=== PATIENT | female | born 1940 | race Caucasian/White ===

== ENCOUNTER 2021-12-18 18:49 | Inpatient (IN) ==
[2021-12-18] MEDS ORDERED: Iopamidol - 370 500 ML MLS IVP ONE (20:34)
[2021-12-18 21:19] LABS: Basophils % 0.3 %; Hematocrit 25.3 % (35.3-44.9); Immature Granulocytes % 1.4 % (0-4); Lymphocytes # 0.8 K/mcL (0.6-4.6); Lymphocytes % 10.2 %; Mean Corpuscular HGB Conc 31.6 g/dL (31.6-35.5); Mean Corpuscular Hemoglobin 31.7 pg (28.0-33.3); Mean Corpuscular Volume 100.4 fL (83.0-100.0); Mean Platelet Volume 9.6 fL (9.4-12.4); Monocytes # 0.5 K/mcL (0.0-1.3); Monocytes % 6.6 %; Neutrophils # 6.4 K/mcL (1.6-8.9); Platelet Count 151 K/mcL (140-400); Red Blood Count 2.52 M/mcL (3.82-4.97); Red Cell Distribution Width 18.1 % (11.5-14.5); Segmented Neutrophils % 81.5 %; White Blood Count 7.8 K/mcL (4.3-11.1)
[2021-12-18 21:27] LABS: Bilirubin,Urine Small (Negative); Blood,Urine Large (Negative); Clarity,Urine Turbid (Clear); Color,Urine Red (Yellow); Glucose,Urine (UA) Normal (Normal); Ketones,Urine Negative (Negative); Leukocyte Esterase,Urine Small (Negative); Nitrite,Urine Negative (Negative); Protein,Urine >=300 mg/dL (Neg-Trace); Specific Gravity,Urine 1.025 (1.010-1.025); Urobilinogen,Urine Normal (Normal)
[2021-12-18 21:42] LABS: Albumin 2.8 g/dL (3.5-5.7); Albumin/Globulin Ratio 1.2 (1.1-2.2); Bilirubin,Direct 0.2 mg/dL (0.0-0.2); Bilirubin,Indirect 0.5 mg/dL (0.0-1.0); Bilirubin,Total 0.7 mg/dL (0.3-1.0); Calcium 8.3 mg/dL (8.6-10.3); Globulin 2.4 g/dL (2.4-3.5); Magnesium 1.7 mg/dL (1.6-2.6); Total Protein 5.2 g/dL (6.4-8.9); Troponin I 0.04 ng/mL (< 0.04)
[2021-12-18] MEDS ORDERED: cefTRIAXone 1,000 MG in 0.9 % Sodium Chloride 10 ML IVP ONE (22:59)
[2021-12-18] MEDS ORDERED: 0.9 % Sodium Chloride 500 ML IVC ONE (23:01)
[2021-12-19] MEDS ORDERED: Naloxone 0.4 MG/ML INJ IVP PRN (00:50)
[2021-12-19 02:39] LABS: Albumin 2.5 g/dL (3.5-5.7); Albumin/Globulin Ratio 1.1 (1.1-2.2); Bilirubin,Total 0.5 mg/dL (0.3-1.0); Calcium 7.9 mg/dL (8.6-10.3); Globulin 2.3 g/dL (2.4-3.5); Magnesium 1.8 mg/dL (1.6-2.6); Phosphorous 4.8 mg/dL (2.7-4.5); Potassium 4.9 mEq/L (3.5-5.1); Total Protein 4.8 g/dL (6.4-8.9)
[2021-12-19] MEDS ORDERED: D5% in Water 1,000 ML IVC PRN (02:47)
[2021-12-19] MEDS ORDERED: Dextrose Gel 15 GM/37.5 ML TUBE PO PRN ×2 (02:47)
[2021-12-19] MEDS ORDERED: *HR* Dextrose 50 % in Water (Syg) 50 ML SYRINGE IVP PRN (02:47)
[2021-12-19 02:50] LABS: Basophils % 0.5 %; Eosinophils % 0.2 %; Hematocrit 22.9 % (35.3-44.9); Hemoglobin 7.3 g/dL (11.5-15.4); Immature Granulocytes % 1.5 % (0-4); Lymphocytes # 1.1 K/mcL (0.6-4.6); Lymphocytes % 17.6 %; Mean Corpuscular HGB Conc 31.9 g/dL (31.6-35.5); Mean Corpuscular Hemoglobin 32.4 pg (28.0-33.3); Mean Corpuscular Volume 101.8 fL (83.0-100.0); Monocytes # 0.5 K/mcL (0.0-1.3); Monocytes % 8.8 %; Neutrophils # 4.3 K/mcL (1.6-8.9); Platelet Count 146 K/mcL (140-400); Red Blood Count 2.25 M/mcL (3.82-4.97); Red Cell Distribution Width 18.6 % (11.5-14.5); Segmented Neutrophils % 71.4 %
[2021-12-19 02:51] LABS: Activated Partial Thrombo Time 27.2 Seconds (26.0-36.0); INR 1.1; Prothrombin Time 12.6 Seconds (9.4-12.1)
[2021-12-19 03:10] LABS: VBG HCO3 22 mEq/L (21-27); VBG PCO2 21 mmHg (41-51); VBG PH 7.62 pH Units (7.32-7.42); VBG PO2 109 mmHg (25-50)
[2021-12-19 04:22] LABS: Amphetamine Screen,Urine Negative ng/mL (Cutoff=1000); Barbiturate Screen,Urine Negative ng/mL (Cutoff=200); Benzodiazepines Screen,Urine Negative ng/mL (Cutoff=200); Cannabinoid Screen,Urine Positive ng/mL (Cutoff = 50); Cocaine Screen,Urine Negative ng/mL (Cutoff= 300); Opiate Screen,Urine Positive ng/mL (Cutoff=300); Phencyclidine Screen,Urine Negative ng/mL (Cutoff=25)
[2021-12-19] MEDS: Piperacillin/Tazobactam 3.375 GM in 0.9 % Sodium Chloride Mini Bag 100 ML IVPB SCH ×2 (05:28→17:05)
[2021-12-19 07:02] LABS: % Iron Saturation 13 % (15-50); Acetaminophen < 10 mcg/mL (10-20); Ethanol < 10 mg/dL (Less than 10); Iron 31 mcg/dL (50-170); Salicylate < 2.5 mg/dL (15.0-30.0); Transferrin 169 mg/dL (203-362)
[2021-12-19 07:18] LABS: Ferritin 180 ng/mL (10-120)
[2021-12-19 07:23] LABS: Folate 10.8 ng/mL (3.0-16.0)
[2021-12-19] MEDS ORDERED: Piperacillin/Tazobactam 3.375 GM in 0.9 % Sodium Chloride Mini Bag 100 ML IVPB SCH (08:00)
[2021-12-19] MEDS: Lactobacillus 1 EACH CAP.SPRINK PO SCH ×2 (08:28→20:11)
[2021-12-19] MEDS ORDERED: 0.9 % Sodium Chloride 250 ML ONE (09:36)
[2021-12-19] MEDS: Ipratropium/Albuterol Neb 3 ML IH SCH ×3 (10:45→21:23)
[2021-12-19 11:53] LABS: Estimated Average Glucose 111 mg/dl; Hemoglobin A1C 5.5 %
[2021-12-19] MEDS: Cyanocobalamin (B-12) 1,000 MCG/ML VIAL SQ SCH (13:17)
[2021-12-19 14:33] LABS: Hematocrit 27.5 % (35.3-44.9); Hemoglobin 8.6 g/dL (11.5-15.4)
[2021-12-19 16:17] LABS: Basophils % 0.3 %; Eosinophils % 0.2 %; Hemoglobin 9.1 g/dL (11.5-15.4); Immature Granulocytes % 0.9 % (0-4); Immature Reticulocyte % 32.9 % (11.0-38.0); Lymphocytes % 15.2 %; Mean Corpuscular HGB Conc 31.4 g/dL (31.6-35.5); Mean Corpuscular Hemoglobin 31.2 pg (28.0-33.3); Mean Corpuscular Volume 99.3 fL (83.0-100.0); Mean Platelet Volume 9.8 fL (9.4-12.4); Monocytes # 0.4 K/mcL (0.0-1.3); Monocytes % 6.6 %; Neutrophils # 4.9 K/mcL (1.6-8.9); Platelet Count 148 K/mcL (140-400); Red Blood Count 2.92 M/mcL (3.82-4.97); Red Cell Distribution Width 19.4 % (11.5-14.5); Retculocyte # 0.15 M/mcL (0.05-0.10); Reticulocyte % 5.2 % (1.6-2.8); Segmented Neutrophils % 76.8 %; White Blood Count 6.4 K/mcL (4.3-11.1)
[2021-12-20] MEDS: Ipratropium/Albuterol Neb 3 ML IH SCH ×2 (04:14→11:12)
[2021-12-20 04:59] LABS: Basophils % 0.3 %; Eosinophils % 0.2 %; Hemoglobin 9.3 g/dL (11.5-15.4); Immature Granulocytes % 1.1 % (0-4); Lymphocytes # 0.7 K/mcL (0.6-4.6); Lymphocytes % 11.8 %; Mean Corpuscular HGB Conc 32.1 g/dL (31.6-35.5); Mean Corpuscular Hemoglobin 31.5 pg (28.0-33.3); Mean Corpuscular Volume 98.3 fL (83.0-100.0); Mean Platelet Volume 9.7 fL (9.4-12.4); Monocytes # 0.5 K/mcL (0.0-1.3); Monocytes % 8.5 %; Neutrophils # 4.8 K/mcL (1.6-8.9); Platelet Count 161 K/mcL (140-400); Red Blood Count 2.95 M/mcL (3.82-4.97); Red Cell Distribution Width 19.9 % (11.5-14.5); Segmented Neutrophils % 78.1 %; White Blood Count 6.1 K/mcL (4.3-11.1)
[2021-12-20 05:16] LABS: Calcium 7.9 mg/dL (8.6-10.3); Magnesium 1.8 mg/dL (1.6-2.6); Phosphorous 3.9 mg/dL (2.7-4.5); Potassium 4.2 mEq/L (3.5-5.1)
[2021-12-20] MEDS ORDERED: *HR* Metoprolol 5 MG/5 ML VIAL IVP ONE ×2 (05:24→19:05)
[2021-12-20] MEDS: Piperacillin/Tazobactam 3.375 GM in 0.9 % Sodium Chloride Mini Bag 100 ML IVPB SCH ×2 (05:58→08:00)
[2021-12-20] MEDS ORDERED: *HR* OxyCODONE Immed Rel 15 MG TABLET PO PRN (07:12)
[2021-12-20] MEDS: DilTIAZem CD (24hr) 120 MG CAP.ER.24H PO SCH (09:07)
[2021-12-20] MEDS: *HR* Digoxin 0.125 MG TABLET PO SCH (09:07)
[2021-12-20] MEDS: Lactobacillus 1 EACH CAP.SPRINK PO SCH ×2 (09:07→19:41)
[2021-12-20] MEDS: Cyanocobalamin (B-12) 1,000 MCG/ML VIAL SQ SCH (09:11)
[2021-12-20] MEDS ORDERED: Ipratropium/Albuterol Neb 3 ML IH PRN (11:07)
[2021-12-20] MEDS: Fluconazole 200 MG/100 ML 200 MG/100 ML BAG IVPB SCH (14:35)
[2021-12-20 17:53] LABS: VBG HCO3 21 mEq/L (21-27); VBG PCO2 26 mmHg (41-51); VBG PO2 125 mmHg (25-50)
[2021-12-20] MEDS ORDERED: 0.9 % Sodium Chloride 500 ML IVC ONE (19:10)
[2021-12-20] MEDS: Acetaminophen 325 MG TABLET PO PRN (19:31)
[2021-12-20] MEDS ORDERED: *HR* OxyCODONE Immed Rel 5 MG TABLET PO ONE (21:48)
[2021-12-21 04:35] LABS: Basophils % 0.5 %; Eosinophils % 0.4 %; Hematocrit 29.9 % (35.3-44.9); Hemoglobin 9.5 g/dL (11.5-15.4); Immature Granulocytes % 1.2 % (0-4); Lymphocytes # 1.1 K/mcL (0.6-4.6); Lymphocytes % 18.7 %; Mean Corpuscular HGB Conc 31.8 g/dL (31.6-35.5); Mean Corpuscular Hemoglobin 31.4 pg (28.0-33.3); Mean Corpuscular Volume 98.7 fL (83.0-100.0); Mean Platelet Volume 9.9 fL (9.4-12.4); Monocytes # 0.6 K/mcL (0.0-1.3); Monocytes % 9.7 %; Neutrophils # 3.9 K/mcL (1.6-8.9); Platelet Count 147 K/mcL (140-400); Red Blood Count 3.03 M/mcL (3.82-4.97); Red Cell Distribution Width 19.8 % (11.5-14.5); Segmented Neutrophils % 69.5 %; White Blood Count 5.7 K/mcL (4.3-11.1)
[2021-12-21 04:54] LABS: Calcium 7.7 mg/dL (8.6-10.3); Magnesium 1.7 mg/dL (1.6-2.6); Phosphorous 3.2 mg/dL (2.7-4.5); Potassium 3.9 mEq/L (3.5-5.1)
[2021-12-21] MEDS: *HR* Digoxin 0.125 MG TABLET PO SCH (09:42)
[2021-12-21] MEDS: Lactobacillus 1 EACH CAP.SPRINK PO SCH ×2 (09:42→20:45)
[2021-12-21] MEDS: DilTIAZem CD (24hr) 120 MG CAP.ER.24H PO SCH (09:43)
[2021-12-21] MEDS: Cyanocobalamin (B-12) 1,000 MCG/ML VIAL SQ SCH (09:44)
[2021-12-21] MEDS: Fluconazole 200 MG/100 ML 200 MG/100 ML BAG IVPB SCH (09:45)
[2021-12-21] MEDS: *HR* OxyCODONE Immed Rel 5 MG TABLET PO PRN (13:07)
[2021-12-21 14:17] LABS: VBG HCO3 19 mEq/L (21-27); VBG PCO2 24 mmHg (41-51); VBG PH 7.52 pH Units (7.32-7.42); VBG PO2 113 mmHg (25-50)
[2021-12-21 14:28] LABS: Hematocrit 33.7 % (35.3-44.9); Hemoglobin 10.8 g/dL (11.5-15.4)
[2021-12-22 03:39] LABS: Basophils % 0.5 %; Eosinophils % 0.2 %; Hematocrit 29.9 % (35.3-44.9); Hemoglobin 9.6 g/dL (11.5-15.4); Immature Granulocytes % 1.5 % (0-4); Lymphocytes # 0.8 K/mcL (0.6-4.6); Lymphocytes % 11.8 %; Mean Corpuscular HGB Conc 32.1 g/dL (31.6-35.5); Mean Corpuscular Hemoglobin 31.6 pg (28.0-33.3); Mean Corpuscular Volume 98.4 fL (83.0-100.0); Mean Platelet Volume 9.1 fL (9.4-12.4); Monocytes # 0.6 K/mcL (0.0-1.3); Monocytes % 9.5 %; Platelet Count 150 K/mcL (140-400); Red Blood Count 3.04 M/mcL (3.82-4.97); Red Cell Distribution Width 19.4 % (11.5-14.5); Segmented Neutrophils % 76.5 %; White Blood Count 6.5 K/mcL (4.3-11.1)
[2021-12-22 03:59] LABS: Calcium 7.8 mg/dL (8.6-10.3); Magnesium 2.1 mg/dL (1.6-2.6); Phosphorous 2.9 mg/dL (2.7-4.5); Potassium 3.8 mEq/L (3.5-5.1)
[2021-12-22] MEDS: Fluconazole 200 MG/100 ML 200 MG/100 ML BAG IVPB SCH (08:56)
[2021-12-22] MEDS: DilTIAZem CD (24hr) 180 MG CAP.ER.24H PO SCH (08:57)
[2021-12-22] MEDS: *HR* Digoxin 0.125 MG TABLET PO SCH (08:57)
[2021-12-22] MEDS: Cyanocobalamin (B-12) 1,000 MCG/ML VIAL SQ SCH (08:57)
[2021-12-22] MEDS: Lactobacillus 1 EACH CAP.SPRINK PO SCH ×2 (08:57→20:39)
[2021-12-22 12:31] LABS: Bilirubin,Urine Negative (Negative); Blood,Urine Large (Negative); Clarity,Urine Turbid (Clear); Color,Urine Light-Red (Yellow); Glucose,Urine (UA) Normal (Normal); Ketones,Urine Negative (Negative); Leukocyte Esterase,Urine Moderate (Negative); Nitrite,Urine Negative (Negative); PH,Urine 6.5 pH Units (5.0-8.0); Protein,Urine 100 mg/dL (Neg-Trace); Specific Gravity,Urine < 1.005 (1.010-1.025); Urobilinogen,Urine Normal (Normal)
[2021-12-22] MEDS: *HR* OxyCODONE Immed Rel 5 MG TABLET PO PRN (14:21)
[2021-12-22] MEDS ORDERED: *HR* Alteplase (Cathflo) 2 MG VIAL IVP ONE (15:55)
[2021-12-22] MEDS ORDERED: Ondansetron 4 MG/2 ML VIAL IVP PRN (17:40)
[2021-12-23] MEDS: *HR* OxyCODONE Immed Rel 5 MG TABLET PO PRN ×2 (02:45→16:47)
[2021-12-23] MEDS: DilTIAZem CD (24hr) 180 MG CAP.ER.24H PO SCH (08:41)
[2021-12-23] MEDS: Lactobacillus 1 EACH CAP.SPRINK PO SCH ×2 (08:41→20:52)
[2021-12-23] MEDS: Cyanocobalamin (B-12) 1,000 MCG/ML VIAL SQ SCH (08:41)
[2021-12-23] MEDS: *HR* Digoxin 0.125 MG TABLET PO SCH (08:41)
[2021-12-23 08:59] LABS: Basophils % 0.4 %; Eosinophils % 0.5 %; Hematocrit 31.1 % (35.3-44.9); Hemoglobin 10.2 g/dL (11.5-15.4); Immature Granulocytes % 1.4 % (0-4); Lymphocytes # 1.1 K/mcL (0.6-4.6); Lymphocytes % 13.7 %; Mean Corpuscular HGB Conc 32.8 g/dL (31.6-35.5); Mean Corpuscular Hemoglobin 32.5 pg (28.0-33.3); Mean Platelet Volume 9.4 fL (9.4-12.4); Monocytes # 0.7 K/mcL (0.0-1.3); Monocytes % 8.7 %; Neutrophils # 5.8 K/mcL (1.6-8.9); Platelet Count 164 K/mcL (140-400); Red Blood Count 3.14 M/mcL (3.82-4.97); Red Cell Distribution Width 19.5 % (11.5-14.5); Segmented Neutrophils % 75.3 %; White Blood Count 7.7 K/mcL (4.3-11.1)
[2021-12-23 09:18] LABS: Calcium 8.1 mg/dL (8.6-10.3)
[2021-12-23] MEDS: Acetaminophen 325 MG TABLET PO PRN (20:52)
[2021-12-23] MEDS: Gabapentin 300 MG CAPSULE PO SCH (20:52)
[2021-12-23] MEDS ORDERED: Mirtazapine 15 MG TABLET PO SCH (21:00)
[2021-12-24 09:13] VITALS: PULSE 104
[2021-12-24] MEDS: *HR* Digoxin 0.125 MG TABLET PO SCH (09:27)
[2021-12-24] MEDS: DilTIAZem CD (24hr) 180 MG CAP.ER.24H PO SCH (09:28)
[2021-12-24] MEDS: Gabapentin 300 MG CAPSULE PO SCH (09:28)
[2021-12-24] MEDS: Lactobacillus 1 EACH CAP.SPRINK PO SCH (09:28)
[2021-12-24 10:38] VITALS: BP 138/68; TEMP 98; O2SAT 93
[2021-12-24 14:04] LABS: Adenovirus Not Detected (Not Detect); Bordetella Pertussis Not Detected (Not Detect); Chlamydophila pneumoniae Not Detected (Not Detect); Coronavirus 229E Not Detected (Not Detect); Coronavirus HKU1 Not Detected (Not Detect); Coronavirus NL63 Not Detected (Not Detect); Coronavirus OC43 Not Detected (Not Detect); Human Metapneumovirus Not Detected (Not Detect); Human Rhinovirus/Enterovirus Not Detected (Not Detect); Influenza A Subtype 2009 H1 Not Detected (Not Detect); Influenza B Not Detected (Not Detect); Mycoplasma pneumoniae Not Detected (Not Detect); Parainfluenza Virus 1 Not Detected (Not Detect); Parainfluenza Virus 2 Not Detected (Not Detect); Parainfluenza Virus 3 Not Detected (Not Detect); Parainfluenza Virus 4 Not Detected (Not Detect); Respiratory Syncytial Virus Not Detected (Not Detect); SARS-CoV-2 Not Detected (Not Detect)
== END 2021-12-24 15:53 | DRG 686 ==
LOC: 3ANU 18:49 → EMEROOARM 18:49 → SUATTDRO 12-19 00:50 → 3ANU 12-19 01:42 → SUATTDRO 12-19 12:50
PROVIDERS: ADMIT Internal Medicine; ATTEND Internal Medicine